=== PATIENT | female | born 1975 | race Caucasian/White ===

== ENCOUNTER 2016-12-09 22:10 | Emergency (ER) | payer OTHER ==
[~2016-12-09] VITALS: Ht 165.1 cm; Wt 88.5 kg
[~2016-12-09 22:10] MED LIST: ADDERALL 30 MG30 MG PO; ADDERALL30 MG PO; ALLEGRA60 M2 PO; ANAPROX DS550 MG PO; ANTIVERT25 MG PO; ATARAX25 MG PO; ATORVASTATIN TAB 20M; BACTRIM DS 8001 TA1 PO; CEFTIN500 M1 PO; CELEXA40 MG PO; CEPHALEXIN500 M1 PO; CHANTIX1 TAB PO; CIPRO250 MG PO; CORTISPORIN SUS10 ML OT; CYCLOBENZAPRINE10 MG PO; DAYPRO600 M1 PO; EFFEXOR XR150 M1 PO; EFFEXOR XR150 MG PO; EFFEXOR XR75 M1 PO; FLEXERIL10 MG PO; FLOMAX0.4 MG PO; HYCODAN,HYDROME10 ML PO; HYDR25T PO; HYDROCODONE BIT1 T11 PO; HYDROMET PO; IBU-8800 MG PO; INDERAL XL120 MG PO; INDERAL80 MG PO; KEFLEX500 MG PO; LEVOFLOXACIN; LEVOFLOXACIN500 MG PO; LISINOPRIL AND1 TAB PO; LORAZEPAM0.5 MG PO; MASON NATURAL2000 IU PO; MEDROL DOSEPAK4 MG PO; MILLIPRED5 MG PO; MOTRIN800 MG PO; Motrin,Rufen800 MG PO; NAPROSYN500 MG PO; NKHM; Nystatin Ointme30 GM PO; PERCOCET 325 MG1 TA2 PO; PERCOCET 325 MG1 TA5 PO; PERCOCET 325 MG1 TA7 PO; POTASSIUM CHLO20 ME3 PO; PRAVACHOL20 MG PO; PREDNISONE20 MG PO; ROBAXIN750 MG PO; SEPTRA DS 800 M1 TAB PO; TOPAMAX100 M1 PO; TOPAMAX100 MG PO; TRAMADOL HCL50 MG PO; ULTRAM50 MG PO; VENLAFAXINE; ZITHROMAX Z PA250 MG PO; ZOFRAN ODT4 MG SL; Zofran4 MG PO
[2016-12-10 03:14] VITALS: BP 103/66
== END 2016-12-10 04:22 | disposition home or self-care (01) ==
LOC: ED 22:10
DX: G43.909 Migraine, unspecified, not intractable, without status migrainosus (principal); F90.9 Attention-deficit hyperactivity disorder, unspecified type; F32.9 Major depressive disorder, single episode, unspecified; E78.5 Hyperlipidemia, unspecified; I10 Essential (primary) hypertension; F17.200 Nicotine dependence, unspecified, uncomplicated; Z88.1 Allergy status to other antibiotic agents; Z88.6 Allergy status to analgesic agent; Z88.8 Allergy status to other drugs, medicaments and biological substances; Z79.899 Other long term (current) drug therapy

== ENCOUNTER → 2017-03-15 | Outpatient (CLI) | payer OTHER | END | disposition home or self-care (01) | LOC: US 14:39 | DX: R10.31 Right lower quadrant pain (principal) ==

== ENCOUNTER → 2017-06-07 | Outpatient (CLI) | payer OTHER | END | disposition home or self-care (01) | LOC: RAD 08:51 | DX: M25.461 Effusion, right knee (principal) ==

== ENCOUNTER 2017-11-02 02:43 | Emergency (ER) | payer OTHER ==
[~2017-11-02] VITALS: Ht 167.6 cm; Wt 95.3 kg
--- NOTE | ~2017-11-02 | EKG ---
[place], [place] ELECTROCARDIOGRAM REPORT NAME: YAHAIRA CANTRELL V UNIT #: [id number] ROOM: DOCTOR: SEJAL MEZA MD BIRTHDATE: [birth year] DOS: 11/02/2017 EKG REPORT TIME: 03:00:44. FINDINGS: Sinus tachycardia at 103 beats per minute. IL interval 145 milliseconds, QRS duration 78 milliseconds, corrected QT interval 460 milliseconds, QRS axis 32. IMPRESSION: 1. Sinus tachycardia. 2. Left atrial enlargement. 3. Abnormal EKG. SEJAL MEZA MD CM:EKGRPT:ELECTROCARDIOGRAM REPORT [id number] SEJAL MEZA MD
[2017-11-02 03:07] LABS: BASO % 0.2 % (0.0-1.0); HEMATOCRIT 48.9 % (37.0-47.0); LYMPH % 30.9 % (27.0-41.0); MEAN CELL VOLUME 91.2 fl (81.0-99.0); MEAN CORPUSCULAR HGB 29.9 pg (27.0-31.0); MEAN CORPUSCULAR HGB CONC 32.7 g/dl (33.0-37.0); MEAN PLATELET VOLUME 10.4 fl (9.6-12.3); MONO # 0.8 10*3/uL (0.1-1.0); MONO % 5.2 % (3.0-9.0); NEUT # 10.1 10*3/uL (2.3-7.9); NEUT % 62.5 % (47.0-73.0); PLATELET COUNT AUTOMATED 273 10*3/uL (130-400); RED BLOOD COUNT 5.36 10*6/uL (4.10-5.10); RED CELL DISTRI WIDTH 12.9 % (0-14.5); WHITE BLOOD COUNT 16.2 10*3/uL (4.8-10.8)
[2017-11-02 03:23] LABS: ALBUMIN 3.6 gm/dl (3.1-4.5); ALKALINE PHOSPHATASE 95 U/L (45-117); BUN 22 mg/dl (7-24); CHLORIDE 103 mmol/L (98-107); CREATININE 1.41 mg/dL (0.55-1.02); POTASSIUM 3.8 mmol/L (3.5-5.1); SGOT/AST 14 IU/L (3-35); SGPT/ALT 22 U/L (12-78); SODIUM 138 mmol/L (136-145); TOTAL PROTEIN 7.4 gm/dL (6.4-8.2)
[2017-11-02 03:29] LABS: BETA-HCG, QUANT < 1.0 mIU/mL (1-3); TROPONIN I < 0.015 ng/ml (<0.045)
[2017-11-02 04:53] LABS: BILIRUBIN NEGATIVE (NEGATIVE); BLOOD NEGATIVE (NEGATIVE); CLARITY SL CLOUDY (CLEAR); COLOR YELLOW (YELLOW); GLUCOSE 1+ (NEGATIVE); KETONE NEGATIVE (NEGATIVE); LEUKO ESTERASE NEGATIVE (NEGATIVE); NITRITE NEGATIVE (NEGATIVE); PH 5.5 (5.0-9.0); SPECIFIC GRAVITY >= 1.030 (1.005-1.030); UROBILINOGEN 0.2 E.U./dl (0.2-1.0)
[2017-11-02 04:59] LABS: EPITHELIAL CELLS 35-40
[2017-11-02 05:00] LABS: BACTERIA TRACE; WBC 0-2 wbc/hpf (0-5)
[2017-11-02 05:01] LABS: URINE AMPHETAMINES < 1000 (1000ng/ml); URINE BARBITURATES < 200 (200ng/ml); URINE BENZODIAZEPINES < 200 (200ng/ml); URINE CANNABINOIDS (THC) < 50 (50ng/ml); URINE COCAINE > 300 (300ng/ml); URINE METHADONE < 300 (300ng/ml); URINE OPIATES < 300 (300ng/ml); URINE PHENCYCLIDINE < 25 (25ng/ml)
[2017-11-02 05:27] VITALS: BP 132/80
== END 2017-11-02 05:35 | disposition home or self-care (01) ==
LOC: ED 02:43
PROVIDERS: Student in an Organized Health Care Education/Training Program
DX: T50.904A Poisoning by unspecified drugs, medicaments and biological substances, undetermined, initial encounter (principal); E78.5 Hyperlipidemia, unspecified; I10 Essential (primary) hypertension; G43.909 Migraine, unspecified, not intractable, without status migrainosus; Z79.899 Other long term (current) drug therapy; Z88.6 Allergy status to analgesic agent; Z88.8 Allergy status to other drugs, medicaments and biological substances; Y92.89 Other specified places as the place of occurrence of the external cause

== ENCOUNTER 2017-11-27 11:02 | Emergency (ER) | payer OTHER ==
[2017-11-27 11:09] VITALS: BP 140/107
[2017-11-27 11:18] LABS: BASO % 0.3 % (0.0-1.0); HEMATOCRIT 46.6 % (37.0-47.0); HEMOGLOBIN 16.1 g/dl (12.0-16.0); LYMPH # 2.8 10*3/uL (1.3-4.4); LYMPH % 28.1 % (27.0-41.0); MEAN CELL VOLUME 86.3 fl (81.0-99.0); MEAN CORPUSCULAR HGB 29.8 pg (27.0-31.0); MEAN CORPUSCULAR HGB CONC 34.5 g/dl (33.0-37.0); MEAN PLATELET VOLUME 10.3 fl (9.6-12.3); MONO # 0.6 10*3/uL (0.1-1.0); MONO % 6.2 % (3.0-9.0); NEUT # 6.5 10*3/uL (2.3-7.9); NEUT % 65.2 % (47.0-73.0); PLATELET COUNT AUTOMATED 306 10*3/uL (130-400); RED CELL DISTRI WIDTH 12.9 % (0-14.5); WHITE BLOOD COUNT 9.9 10*3/uL (4.8-10.8)
[2017-11-27 11:36] LABS: ALBUMIN 3.9 gm/dl (3.1-4.5); ALKALINE PHOSPHATASE 97 U/L (45-117); BUN 14 mg/dl (7-24); CHLORIDE 102 mmol/L (98-107); CREATININE 1.07 mg/dL (0.55-1.02); POTASSIUM 3.2 mmol/L (3.5-5.1); SGOT/AST 14 IU/L (3-35); SGPT/ALT 21 U/L (12-78); SODIUM 138 mmol/L (136-145)
[2017-11-27 11:56] LABS: TROPONIN I < 0.015 ng/ml (<0.045)
[2017-11-27 12:22] LABS: URINE AMPHETAMINES > 1000 (1000ng/ml); URINE BARBITURATES < 200 (200ng/ml); URINE BENZODIAZEPINES < 200 (200ng/ml); URINE CANNABINOIDS (THC) < 50 (50ng/ml); URINE COCAINE > 300 (300ng/ml); URINE METHADONE < 300 (300ng/ml); URINE OPIATES < 300 (300ng/ml)
[2017-11-27 12:23] LABS: URINE PHENCYCLIDINE < 25 (25ng/ml)
== END 2017-11-27 12:34 | disposition home or self-care (01) ==
LOC: ED 11:02
PROVIDERS: Emergency Medicine
DX: S22.22XA Fracture of body of sternum, initial encounter for closed fracture (principal); F14.10 Cocaine abuse, uncomplicated; F90.9 Attention-deficit hyperactivity disorder, unspecified type; E78.5 Hyperlipidemia, unspecified; I10 Essential (primary) hypertension; G43.909 Migraine, unspecified, not intractable, without status migrainosus; F17.200 Nicotine dependence, unspecified, uncomplicated; Z98.890 Other specified postprocedural states; Z90.49 Acquired absence of other specified parts of digestive tract; Z88.6 Allergy status to analgesic agent; Z88.3 Allergy status to other anti-infective agents; Z88.8 Allergy status to other drugs, medicaments and biological substances; Z79.899 Other long term (current) drug therapy; X58.XXXA Exposure to other specified factors, initial encounter; Y93.89 Activity, other specified; Y92.89 Other specified places as the place of occurrence of the external cause; Y99.9 Unspecified external cause status

== ENCOUNTER → 2018-06-12 | Outpatient (CLI) | payer OTHER ==
[~2018-06-12] MED LIST changes: +CEFUROXIME AXE250 MG PO; +PREDNISONE20 M1 PO
== END ==
LOC: US 12:08
DX: N91.2 Amenorrhea, unspecified (principal)

== ENCOUNTER 2018-07-22 17:19 | Emergency (ER) | payer OTHER ==
[~2018-07-22] VITALS: Ht 165.1 cm; Wt 90.7 kg
[2018-07-22 18:05] VITALS: BP 129/63
[2019-01-24] MEDS ORDERED: ONE DAILY WOME1 EACH PO (18:32)
[2019-01-26] MEDS ORDERED: LIPITOR40 MG PO (12:30)
[2019-01-26] MEDS ORDERED: VITAMIN D-32000 UNI1 PO (12:30)
[2019-01-26] MEDS ORDERED: Motrin,Rufen800 MG PO (12:30)
[2019-01-26] MEDS ORDERED: ASPIRIN81 M1 PO (12:30)
== END 2018-07-22 18:05 | disposition home or self-care (01) ==
LOC: ED 17:19
DX: G43.909 Migraine, unspecified, not intractable, without status migrainosus (principal); I10 Essential (primary) hypertension; E78.5 Hyperlipidemia, unspecified; Z88.6 Allergy status to analgesic agent; Z88.8 Allergy status to other drugs, medicaments and biological substances; Z79.899 Other long term (current) drug therapy

== ENCOUNTER 2018-07-24 12:28 | Emergency (ER) | payer SELFPAY ==
[~2018-07-24] VITALS: Ht 165.1 cm; Wt 90.7 kg
[2018-07-24 12:31] VITALS: BP 127/85
== END 2018-07-24 14:59 | disposition home or self-care (01) ==
LOC: ED 12:28
DX: G43.909 Migraine, unspecified, not intractable, without status migrainosus (principal); H92.01 Otalgia, right ear; F17.200 Nicotine dependence, unspecified, uncomplicated; Z88.6 Allergy status to analgesic agent; Z88.8 Allergy status to other drugs, medicaments and biological substances; Z79.899 Other long term (current) drug therapy

== ENCOUNTER → 2019-02-09 | Outpatient (CLI) | payer OTHER ==
[~2019-02-09] MED LIST changes: +ASPIRIN81 M1 PO; +LIPITOR40 MG PO; +ONE DAILY WOME1 EACH PO; +VITAMIN D-32000 UNI1 PO
== END | disposition home or self-care (01) ==
LOC: RESCLI 02:02
DX: G43.009 Migraine without aura, not intractable, without status migrainosus (principal); R42 Dizziness and giddiness; G44.229 Chronic tension-type headache, not intractable; G62.9 Polyneuropathy, unspecified; E78.2 Mixed hyperlipidemia; R41.0 Disorientation, unspecified; E55.9 Vitamin D deficiency, unspecified; E53.8 Deficiency of other specified B group vitamins; F90.9 Attention-deficit hyperactivity disorder, unspecified type; Z72.0 Tobacco use; Z79.899 Other long term (current) drug therapy

== ENCOUNTER 2019-12-10 21:46 | Emergency (ER) | payer OTHER ==
[~2019-12-10] VITALS: Ht 162.5 cm; Wt 90.7 kg
[2019-12-10 21:55] VITALS: BP 162/107
[2019-12-10] MEDS ORDERED: ULTRAM50 MG PO (23:59)
== END 2019-12-11 00:12 | disposition home or self-care (01) ==
LOC: ED 21:46
DX: S22.31XA Fracture of one rib, right side, initial encounter for closed fracture (principal); E78.5 Hyperlipidemia, unspecified; I10 Essential (primary) hypertension; G43.909 Migraine, unspecified, not intractable, without status migrainosus; F17.200 Nicotine dependence, unspecified, uncomplicated; Z88.6 Allergy status to analgesic agent; Z88.8 Allergy status to other drugs, medicaments and biological substances; Z79.899 Other long term (current) drug therapy; Z86.718 Personal history of other venous thrombosis and embolism; Y08.89XA Assault by other specified means, initial encounter; Y93.89 Activity, other specified; Y92.89 Other specified places as the place of occurrence of the external cause; Y99.8 Other external cause status

== ENCOUNTER 2020-02-11 02:47 | Emergency (ER) | payer OTHER ==
[~2020-02-11] VITALS: Ht 162.5 cm; Wt 81.6 kg
[2020-02-11 02:54] VITALS: BP 123/85
[2020-02-11] MEDS ORDERED: AMOXICILLIN500 M3 PO (03:17)
== END 2020-02-11 03:28 | disposition home or self-care (01) ==
LOC: ED 02:47
DX: A69.20 Lyme disease, unspecified (principal); F17.200 Nicotine dependence, unspecified, uncomplicated; Z88.6 Allergy status to analgesic agent; Z88.8 Allergy status to other drugs, medicaments and biological substances; Z79.899 Other long term (current) drug therapy

== ENCOUNTER 2020-03-31 11:35 | Emergency (ER) | payer OTHER ==
[~2020-03-31] VITALS: Wt 81.6 kg
[~2020-03-31 11:35] MED LIST changes: +AMOXICILLIN500 M3 PO
[2020-03-31 11:44] VITALS: BP 134/93
[2020-03-31 12:50] LABS: BASO % 0.2 % (0.0-1.0); EOS # 0.3 10*3/uL (0.0-0.4); EOS % 2.5 % (1.0-4.0); HEMATOCRIT 46.3 % (37.0-47.0); LYMPH # 1.7 10*3/uL (1.3-4.4); LYMPH % 13.8 % (27.0-41.0); MEAN CORPUSCULAR HGB 29.7 pg (27.0-31.0); MEAN CORPUSCULAR HGB CONC 32.6 g/dl (33.0-37.0); MEAN PLATELET VOLUME 10.3 fl (9.6-12.3); MONO # 0.7 10*3/uL (0.1-1.0); MONO % 5.5 % (3.0-9.0); NEUT # 9.4 10*3/uL (2.3-7.9); NEUT % 77.7 % (47.0-73.0); PLATELET COUNT AUTOMATED 290 10*3/uL (130-400); RED BLOOD COUNT 5.09 10*6/uL (4.10-5.10); RED CELL DISTRI WIDTH 12.7 % (0-14.5); WHITE BLOOD COUNT 12.1 10*3/uL (4.8-10.8)
[2020-03-31 13:08] LABS: ALBUMIN 3.6 gm/dl (3.1-4.5); ALKALINE PHOSPHATASE 101 U/L (45-117); BUN 15 mg/dl (7-24); CHLORIDE 106 mmol/L (98-107); CREATININE 0.89 mg/dL (0.55-1.02); POTASSIUM 3.7 mmol/L (3.5-5.1); SGOT/AST 10 IU/L (3-35); SGPT/ALT 19 U/L (12-78); SODIUM 140 mmol/L (136-145); TOTAL PROTEIN 7.7 gm/dL (6.4-8.2)
[2020-03-31 13:32] LABS: BACTERIA 4+; BILIRUBIN NEGATIVE; BLOOD 3+ (NEGATIVE); CLARITY TURBID (CLEAR); COLOR YELLOW (YELLOW); GLUCOSE NEGATIVE; KETONE NEGATIVE; LEUKO ESTERASE 3+ (NEGATIVE); NITRITE POSITIVE (NEGATIVE); PH 6.5 (4.5-8.0); RBC TNTC rbc/hpf (0-2); WBC TNTC wbc/hpf (0-5)
[2020-03-31] MEDS ORDERED: PYRIDIUM200 M1 PO (13:44)
[2020-03-31] MEDS ORDERED: SEPTDS PO (13:44)
== END 2020-03-31 15:17 | disposition home or self-care (01) ==
LOC: ED 11:35
PROVIDERS: Physician Assistant
DX: N39.0 Urinary tract infection, site not specified (principal); Z79.899 Other long term (current) drug therapy; Z88.8 Allergy status to other drugs, medicaments and biological substances

== ENCOUNTER 2020-08-14 15:05 | Emergency (ER) | payer OTHER ==
[~2020-08-14] VITALS: Ht 162.5 cm; Wt 757.5 kg
[~2020-08-14 15:05] MED LIST changes: +CIPRO500 MG PO; +PYRIDIUM200 M1 PO; +SEPTDS PO
[2020-08-14 15:27] VITALS: BP 158/98
[2020-08-14] MEDS ORDERED: OMNICEF300 MG PO (17:33)
== END 2020-08-14 17:45 | disposition home or self-care (01) ==
LOC: ED 15:05
DX: G43.909 Migraine, unspecified, not intractable, without status migrainosus (principal); H66.91 Otitis media, unspecified, right ear; F17.200 Nicotine dependence, unspecified, uncomplicated; Z90.49 Acquired absence of other specified parts of digestive tract; Z98.890 Other specified postprocedural states; Z79.899 Other long term (current) drug therapy; Z79.82 Long term (current) use of aspirin; Z88.6 Allergy status to analgesic agent; Z88.3 Allergy status to other anti-infective agents; Z88.8 Allergy status to other drugs, medicaments and biological substances

== ENCOUNTER 2020-08-27 17:24 | Emergency (ER) | payer OTHER ==
[~2020-08-27] VITALS: Ht 165.1 cm; Wt 86.2 kg
[~2020-08-27 17:24] MED LIST changes: +OMNICEF300 MG PO
[2020-08-27 17:33] VITALS: BP 162/91
[2020-08-27] MEDS ORDERED: ROBAXIN-750750 MG PO (19:19)
== END 2020-08-27 19:39 | disposition home or self-care (01) ==
LOC: ED 17:24
DX: S16.1XXA Strain of muscle, fascia and tendon at neck level, initial encounter (principal); S00.93XA Contusion of unspecified part of head, initial encounter; I10 Essential (primary) hypertension; F32.9 Major depressive disorder, single episode, unspecified; F17.200 Nicotine dependence, unspecified, uncomplicated; Z79.899 Other long term (current) drug therapy; Z90.49 Acquired absence of other specified parts of digestive tract; X94.0XXA Assault by shotgun, initial encounter; Y93.89 Activity, other specified; Y92.89 Other specified places as the place of occurrence of the external cause; Y99.8 Other external cause status

== ENCOUNTER 2020-09-16 09:11 | Emergency (ER) | payer OTHER ==
[~2020-09-16] VITALS: Ht 165.1 cm; Wt 85.7 kg
[~2020-09-16 09:11] MED LIST changes: +ROBAXIN-750750 MG PO
[2020-09-16 09:16] VITALS: BP 143/99
[2020-09-16 09:54] LABS: BASO % 0.2 % (0.0-1.0); HEMATOCRIT 50.1 % (37.0-47.0); LYMPH # 1.9 10*3/uL (1.3-4.4); LYMPH % 15.6 % (27.0-41.0); MEAN CELL VOLUME 87.1 fl (81.0-99.0); MEAN CORPUSCULAR HGB 29.6 pg (27.0-31.0); MEAN CORPUSCULAR HGB CONC 33.9 g/dl (33.0-37.0); MEAN PLATELET VOLUME 10.8 fl (9.6-12.3); MONO # 0.7 10*3/uL (0.1-1.0); NEUT # 9.4 10*3/uL (2.3-7.9); NEUT % 77.9 % (47.0-73.0); PLATELET COUNT AUTOMATED 292 10*3/uL (130-400); RED BLOOD COUNT 5.75 10*6/uL (4.10-5.10); RED CELL DISTRI WIDTH 12.6 % (0-14.5); WHITE BLOOD COUNT 12.1 10*3/uL (4.8-10.8)
[2020-09-16 10:08] LABS: ALBUMIN 3.6 gm/dl (3.1-4.5); ALKALINE PHOSPHATASE 115 U/L (45-117); BUN 17 mg/dl (7-24); CHLORIDE 107 mmol/L (98-107); CREATININE 0.88 mg/dL (0.55-1.02); LIPASE 58 U/L (73-393); POTASSIUM 3.5 mmol/L (3.5-5.1); SGOT/AST 10 IU/L (3-35); SGPT/ALT 25 U/L (12-78); SODIUM 140 mmol/L (136-145); TOTAL PROTEIN 8.1 gm/dL (6.4-8.2)
[2020-09-16 13:04] LABS: BILIRUBIN Negative (Negative); BLOOD Trace-Intact (Negative); CLARITY Clear (Clear); COLOR Yellow (Yellow); GLUCOSE Negative (Negative); KETONE Negative (Negative); LEUKO ESTERASE Negative (Negative); NITRITE Negative (Negative); PH 6.5 (4.5-8.0); SPECIFIC GRAVITY >= 1.030 (1.001-1.030)
[2020-09-16 13:22] LABS: CALCIUM OXALATE CRYSTALS Trace; WBC 0-2 wbc/hpf (0-5)
== END 2020-09-16 13:49 | disposition home or self-care (01) ==
LOC: ED 09:11
PROVIDERS: Physician Assistant
DX: K29.70 Gastritis, unspecified, without bleeding (principal); I10 Essential (primary) hypertension; G43.909 Migraine, unspecified, not intractable, without status migrainosus; F32.9 Major depressive disorder, single episode, unspecified; F17.200 Nicotine dependence, unspecified, uncomplicated; Z88.8 Allergy status to other drugs, medicaments and biological substances; Z91.018 Allergy to other foods; Z79.899 Other long term (current) drug therapy; Z98.890 Other specified postprocedural states; Z90.49 Acquired absence of other specified parts of digestive tract

== ENCOUNTER 2020-09-21 11:10 | Emergency (ER) | payer OTHER ==
[~2020-09-21] VITALS: Wt 81.6 kg
[2020-09-21 12:30] VITALS: BP 156/103
== END 2020-09-21 13:35 | disposition short-term general hospital (02) ==
LOC: ED 11:10
DX: S00.83XA Contusion of other part of head, initial encounter (principal); M54.2 Cervicalgia; R07.81 Pleurodynia; R10.9 Unspecified abdominal pain; E66.9 Obesity, unspecified; F90.9 Attention-deficit hyperactivity disorder, unspecified type; E78.1 Pure hyperglyceridemia; G43.909 Migraine, unspecified, not intractable, without status migrainosus; G62.9 Polyneuropathy, unspecified; F17.200 Nicotine dependence, unspecified, uncomplicated; Z88.6 Allergy status to analgesic agent; Z88.8 Allergy status to other drugs, medicaments and biological substances; Z79.2 Long term (current) use of antibiotics; Z79.82 Long term (current) use of aspirin; Z79.899 Other long term (current) drug therapy; Z86.73 Personal history of transient ischemic attack (TIA), and cerebral infarction without residual deficits; Z90.49 Acquired absence of other specified parts of digestive tract; Y04.2XXA Assault by strike against or bumped into by another person, initial encounter; Y93.89 Activity, other specified; Y92.098 Other place in other non-institutional residence as the place of occurrence of the external cause; Y99.8 Other external cause status

== ENCOUNTER 2020-10-03 03:54 | Emergency (ER) | payer OTHER ==
[~2020-10-03] VITALS: Ht 162.5 cm; Wt 81.6 kg
[2020-10-03 04:02] VITALS: BP 147/86
[2020-10-03 05:23] LABS: BILIRUBIN Negative (Negative); BLOOD Negative (Negative); CLARITY Cloudy (Clear); COLOR Yellow (Yellow); GLUCOSE Negative (Negative); KETONE Negative (Negative); LEUKO ESTERASE Trace (Negative); NITRITE Negative (Negative); SPECIFIC GRAVITY >= 1.030 (1.001-1.030); UROBILINOGEN 0.2 E.U./dl (0.0-1.0)
[2020-10-03 05:36] LABS: CALCIUM OXALATE CRYSTALS 2+
[2020-10-03 05:37] LABS: URINE BARBITURATES < 200 (200ng/ml); URINE BENZODIAZEPINES < 200 (200ng/ml); URINE CANNABINOIDS (THC) < 50 (50ng/ml); URINE COCAINE < 300 (300ng/ml); URINE METHADONE < 300 (300ng/ml); URINE OPIATES < 300 (300ng/ml)
[2020-10-03 05:38] LABS: URINE PHENCYCLIDINE < 25 (25ng/ml)
[2020-10-03 05:41] LABS: URINE AMPHETAMINES > 1000 (1000ng/ml)
[2020-10-03] MEDS ORDERED: ULTRAM50 MG PO (06:04)
== END 2020-10-03 06:25 | disposition home or self-care (01) ==
LOC: ED 03:54
PROVIDERS: Emergency Medicine
DX: S22.32XA Fracture of one rib, left side, initial encounter for closed fracture (principal); F32.9 Major depressive disorder, single episode, unspecified; I10 Essential (primary) hypertension; Z88.8 Allergy status to other drugs, medicaments and biological substances; Z88.2 Allergy status to sulfonamides; Z79.899 Other long term (current) drug therapy; G43.909 Migraine, unspecified, not intractable, without status migrainosus; Z98.890 Other specified postprocedural states; Z90.49 Acquired absence of other specified parts of digestive tract; X58.XXXA Exposure to other specified factors, initial encounter; Y93.89 Activity, other specified; Y92.89 Other specified places as the place of occurrence of the external cause; Y99.8 Other external cause status

== ENCOUNTER 2020-12-20 04:43 | Emergency (ER) | payer OTHER ==
[~2020-12-20] VITALS: Ht 162.5 cm; Wt 81.6 kg
[2020-12-20 04:52] VITALS: BP 158/105
[2020-12-20 05:57] LABS: ALBUMIN 4.1 gm/dl (3.1-4.5); ALKALINE PHOSPHATASE 155 U/L (45-117); BUN 16 mg/dl (7-24); CHLORIDE 107 mmol/L (98-107); CREATININE 0.74 mg/dL (0.55-1.02); POTASSIUM 3.4 mmol/L (3.5-5.1); SGOT/AST 8 IU/L (3-35); SGPT/ALT 17 U/L (12-78); SODIUM 139 mmol/L (136-145); TOTAL PROTEIN 8.3 gm/dL (6.4-8.2)
[2020-12-20 06:06] LABS: BASO % 0.3 % (0.0-1.0); EOS # 0.2 10*3/uL (0.0-0.4); EOS % 2.8 % (1.0-4.0); HEMATOCRIT 46.9 % (37.0-47.0); LYMPH % 25.8 % (27.0-41.0); MEAN CELL VOLUME 88.3 fl (81.0-99.0); MEAN CORPUSCULAR HGB 27.9 pg (27.0-31.0); MEAN CORPUSCULAR HGB CONC 31.6 g/dl (33.0-37.0); MONO # 0.5 10*3/uL (0.1-1.0); MONO % 6.8 % (3.0-9.0); NEUT # 4.9 10*3/uL (2.3-7.9); PLATELET COUNT AUTOMATED 298 10*3/uL (130-400); RED BLOOD COUNT 5.31 10*6/uL (4.10-5.10); RED CELL DISTRI WIDTH 13.3 % (0-14.5); WHITE BLOOD COUNT 7.6 10*3/uL (4.8-10.8)
== END 2020-12-20 08:20 | disposition left against medical advice (07) ==
LOC: ED 04:43
PROVIDERS: Internal Medicine
DX: Z88.6 Allergy status to analgesic agent (principal); Z88.8 Allergy status to other drugs, medicaments and biological substances; Z88.1 Allergy status to other antibiotic agents; Z88.5 Allergy status to narcotic agent; Z79.2 Long term (current) use of antibiotics; Z79.82 Long term (current) use of aspirin; Z79.899 Other long term (current) drug therapy; Z90.49 Acquired absence of other specified parts of digestive tract; F17.200 Nicotine dependence, unspecified, uncomplicated

== ENCOUNTER 2020-12-20 09:43 | Emergency (ER) | payer OTHER ==
[~2020-12-20] VITALS: Wt 81.6 kg
[2020-12-20 09:49] VITALS: BP 139/95
== END 2020-12-20 10:39 | disposition left against medical advice (07) ==
LOC: ED 09:43
DX: L97.219 Non-pressure chronic ulcer of right calf with unspecified severity (principal); F17.200 Nicotine dependence, unspecified, uncomplicated; Z53.29 Procedure and treatment not carried out because of patient's decision for other reasons; Z88.6 Allergy status to analgesic agent; Z88.8 Allergy status to other drugs, medicaments and biological substances; Z88.5 Allergy status to narcotic agent; Z88.1 Allergy status to other antibiotic agents; Z79.2 Long term (current) use of antibiotics; Z79.82 Long term (current) use of aspirin; Z79.899 Other long term (current) drug therapy; Z90.49 Acquired absence of other specified parts of digestive tract

== ENCOUNTER 2021-01-01 14:12 | Emergency (ER) | payer OTHER ==
[~2021-01-01] VITALS: Wt 72.6 kg
[2021-01-01 14:20] VITALS: BP 151/79
== END 2021-01-01 15:50 | disposition left against medical advice (07) ==
LOC: ED 14:12
DX: L08.89 Other specified local infections of the skin and subcutaneous tissue (principal); Z53.21 Procedure and treatment not carried out due to patient leaving prior to being seen by health care provider

== ENCOUNTER 2021-01-22 20:57 | Emergency (ER) | payer OTHER ==
[~2021-01-22] VITALS: Ht 165.1 cm; Wt 71.7 kg
[2021-01-22 21:26] VITALS: BP 133/89
[2021-01-22] MEDS ORDERED: NAPROXEN250 MG PO (22:58)
== END 2021-01-22 23:21 | disposition home or self-care (01) ==
LOC: ED 20:57
DX: S16.1XXA Strain of muscle, fascia and tendon at neck level, initial encounter (principal); R07.89 Other chest pain; F17.200 Nicotine dependence, unspecified, uncomplicated; Z90.49 Acquired absence of other specified parts of digestive tract; Z79.899 Other long term (current) drug therapy; Z79.82 Long term (current) use of aspirin; Z88.6 Allergy status to analgesic agent; Z88.3 Allergy status to other anti-infective agents; X50.1XXA Overexertion from prolonged static or awkward postures, initial encounter; Y93.89 Activity, other specified; Y92.89 Other specified places as the place of occurrence of the external cause; Y99.9 Unspecified external cause status

== ENCOUNTER 2021-02-16 04:31 | Emergency (ER) | payer OTHER ==
[~2021-02-16] VITALS: Ht 162.5 cm; Wt 77.1 kg
[~2021-02-16 04:31] MED LIST changes: +NAPROXEN250 MG PO
[2021-02-16 04:47] VITALS: BP 149/91
[2021-02-16] MEDS ORDERED: SEPTDS PO (05:27)
== END 2021-02-16 05:50 | disposition home or self-care (01) ==
LOC: ED 04:31
DX: S20.224A Contusion of middle back wall of thorax, initial encounter (principal); L73.2 Hidradenitis suppurativa; F17.200 Nicotine dependence, unspecified, uncomplicated; Z88.6 Allergy status to analgesic agent; Z88.8 Allergy status to other drugs, medicaments and biological substances; Z88.5 Allergy status to narcotic agent; Z88.1 Allergy status to other antibiotic agents; Z79.2 Long term (current) use of antibiotics; Z79.899 Other long term (current) drug therapy; Z79.82 Long term (current) use of aspirin; Z90.49 Acquired absence of other specified parts of digestive tract; Z87.442 Personal history of urinary calculi; Y04.2XXA Assault by strike against or bumped into by another person, initial encounter; Y93.89 Activity, other specified; Y92.098 Other place in other non-institutional residence as the place of occurrence of the external cause; Y99.8 Other external cause status

== ENCOUNTER 2021-04-03 14:12 | Emergency (ER) | payer OTHER ==
[~2021-04-03] VITALS: Ht 162.5 cm; Wt 70.3 kg
[2021-04-03 14:30] VITALS: BP 133/89
== END 2021-04-03 21:24 | disposition left against medical advice (07) ==
LOC: ED 14:12
DX: L02.413 Cutaneous abscess of right upper limb (principal); Z53.21 Procedure and treatment not carried out due to patient leaving prior to being seen by health care provider

== ENCOUNTER 2021-04-05 04:45 | Emergency (ER) | payer OTHER ==
[~2021-04-05] VITALS: Ht 162.5 cm; Wt 72.6 kg
[2021-04-05 05:03] VITALS: BP 138/72
[2021-04-05 05:41] LABS: BILIRUBIN Negative (Negative); BLOOD 2+ (Negative); CLARITY Cloudy (Clear); COLOR Yellow (Yellow); GLUCOSE Negative (Negative); KETONE Negative (Negative); LEUKO ESTERASE 3+ (Negative); NITRITE Positive (Negative); PH 5.5 (4.5-8.0); UROBILINOGEN 0.2 E.U./dl (0.0-1.0)
[2021-04-05 06:38] LABS: WBC TNTC wbc/hpf (0-5)
[2021-04-05 06:39] LABS: EPITHELIAL CELLS 0-2; RBC 21-30 rbc/hpf (0-2)
[2021-04-05 06:40] LABS: BACTERIA 2+
[2021-04-05] MEDS ORDERED: CEPHALEXIN500 M1 PO ×2 (07:29→07:42)
[2021-04-05] MEDS ORDERED: SEPTDS PO (07:42)
== END 2021-04-05 07:36 | disposition home or self-care (01) ==
LOC: ED 04:45
PROVIDERS: Emergency Medicine
DX: L02.411 Cutaneous abscess of right axilla (principal); N39.0 Urinary tract infection, site not specified; F90.9 Attention-deficit hyperactivity disorder, unspecified type; F32.9 Major depressive disorder, single episode, unspecified; E78.1 Pure hyperglyceridemia; I10 Essential (primary) hypertension; G43.909 Migraine, unspecified, not intractable, without status migrainosus; G62.9 Polyneuropathy, unspecified; F17.200 Nicotine dependence, unspecified, uncomplicated; Z88.6 Allergy status to analgesic agent; Z88.8 Allergy status to other drugs, medicaments and biological substances; Z88.1 Allergy status to other antibiotic agents; Z79.2 Long term (current) use of antibiotics; Z79.899 Other long term (current) drug therapy; Z79.82 Long term (current) use of aspirin; Z86.73 Personal history of transient ischemic attack (TIA), and cerebral infarction without residual deficits

== ENCOUNTER 2021-04-21 18:11 | Emergency (ER) | payer OTHER ==
[~2021-04-21] VITALS: Wt 72.6 kg
[2021-04-21 18:22] VITALS: BP 153/98
[2021-04-21] MEDS ORDERED: CEPHALEXIN500 M1 PO (23:06)
== END 2021-04-22 00:32 | disposition home or self-care (01) ==
LOC: ED 18:11
DX: S80.11XA Contusion of right lower leg, initial encounter (principal); Z88.8 Allergy status to other drugs, medicaments and biological substances; Z88.6 Allergy status to analgesic agent; Z79.899 Other long term (current) drug therapy; X58.XXXA Exposure to other specified factors, initial encounter; Y93.89 Activity, other specified; Y92.89 Other specified places as the place of occurrence of the external cause; Y99.8 Other external cause status

== ENCOUNTER 2021-05-16 07:05 | Emergency (ER) | payer OTHER ==
[~2021-05-16] VITALS: Ht 162.5 cm; Wt 77.1 kg
[2021-05-16 07:15] VITALS: BP 137/88
[2021-05-16 08:10] LABS: BASO % 0.2 % (0.0-1.0); HEMATOCRIT 46.5 % (37.0-47.0); LYMPH # 1.4 10*3/uL (1.3-4.4); LYMPH % 11.8 % (27.0-41.0); MEAN CELL VOLUME 90.1 fl (81.0-99.0); MEAN CORPUSCULAR HGB 29.5 pg (27.0-31.0); MEAN CORPUSCULAR HGB CONC 32.7 g/dl (33.0-37.0); MONO # 0.8 10*3/uL (0.1-1.0); MONO % 7.2 % (3.0-9.0); NEUT # 9.3 10*3/uL (2.3-7.9); NEUT % 80.5 % (47.0-73.0); PLATELET COUNT AUTOMATED 276 10*3/uL (130-400); RED BLOOD COUNT 5.16 10*6/uL (4.10-5.10); RED CELL DISTRI WIDTH 13.3 % (0-14.5); WHITE BLOOD COUNT 11.5 10*3/uL (4.8-10.8)
[2021-05-16 08:27] LABS: ALBUMIN 3.3 gm/dl (3.1-4.5); ALKALINE PHOSPHATASE 121 U/L (45-117); BUN 15 mg/dl (7-24); CHLORIDE 101 mmol/L (98-107); CREATININE 0.91 mg/dL (0.55-1.02); POTASSIUM 3.8 mmol/L (3.5-5.1); SGOT/AST 25 IU/L (3-35); SGPT/ALT 32 U/L (12-78); SODIUM 133 mmol/L (136-145); TOTAL PROTEIN 8.3 gm/dL (6.4-8.2)
[2021-05-16 08:31] LABS: TROPONIN I < 0.015 ng/ml (<0.045)
[2021-05-16 09:12] LABS: BILIRUBIN Negative (Negative); BLOOD 3+ (Negative); CLARITY Turbid (Clear); COLOR Dark Yellow (Yellow); GLUCOSE Negative (Negative); KETONE 3+ (Negative); LEUKO ESTERASE 3+ (Negative); NITRITE Positive (Negative); PH 5.5 (4.5-8.0)
[2021-05-16 09:32] LABS: URINE AMPHETAMINES > 1000 (1000ng/ml); URINE BARBITURATES < 200 (200ng/ml); URINE BENZODIAZEPINES < 200 (200ng/ml); URINE CANNABINOIDS (THC) < 50 (50ng/ml); URINE COCAINE < 300 (300ng/ml); URINE METHADONE < 300 (300ng/ml); URINE OPIATES < 300 (300ng/ml)
[2021-05-16 09:35] LABS: RBC 31-40 rbc/hpf (0-2)
[2021-05-16 09:36] LABS: BACTERIA 3+; WBC TNTC wbc/hpf (0-5)
[2021-05-16 09:37] LABS: URINE PHENCYCLIDINE < 25 (25ng/ml)
[2021-05-16] MEDS ORDERED: SEPTDS PO (09:41)
== END 2021-05-16 10:05 | disposition home or self-care (01) ==
LOC: ED 07:05
PROVIDERS: Emergency Medicine
DX: G89.29 Other chronic pain (principal); N39.0 Urinary tract infection, site not specified; F15.10 Other stimulant abuse, uncomplicated

== ENCOUNTER → 2021-06-04 | Outpatient (CLI) | payer OTHER | LOC: WOUNDCARE 07:14 | PROVIDERS: ATTEND Nurse Practitioner Family | DX: T86.828 Other complications of skin graft (allograft) (autograft) (principal); M79.661 Pain in right lower leg; E78.5 Hyperlipidemia, unspecified; F17.200 Nicotine dependence, unspecified, uncomplicated; Z79.899 Other long term (current) drug therapy; Y83.2 Surgical operation with anastomosis, bypass or graft as the cause of abnormal reaction of the patient, or of later complication, without mention of misadventure at the time of the procedure; Y92.238 Other place in hospital as the place of occurrence of the external cause ==

== ENCOUNTER 2021-07-07 22:36 | Emergency (ER) | payer OTHER ==
[2021-07-07 22:48] VITALS: BP 148/100
[2021-07-07] MEDS ORDERED: CEPHALEXIN500 M1 PO (23:07)
== END 2021-07-07 23:54 | disposition home or self-care (01) ==
LOC: ED 22:36
DX: S00.81XA Abrasion of other part of head, initial encounter (principal); W22.8XXA Striking against or struck by other objects, initial encounter; Y93.89 Activity, other specified; Y92.89 Other specified places as the place of occurrence of the external cause; Y99.8 Other external cause status

== ENCOUNTER 2021-07-15 13:22 | Emergency (ER) | payer OTHER ==
[~2021-07-15] VITALS: Wt 72.6 kg
[2021-07-15 15:30] LABS: BASO % 0.2 % (0.0-1.0); HEMATOCRIT 47.9 % (37.0-47.0); LYMPH # 2.8 10*3/uL (1.3-4.4); LYMPH % 34.1 % (27.0-41.0); MEAN CELL VOLUME 89.7 fl (81.0-99.0); MEAN CORPUSCULAR HGB 29.4 pg (27.0-31.0); MEAN CORPUSCULAR HGB CONC 32.8 g/dl (33.0-37.0); MEAN PLATELET VOLUME 10.7 fl (9.6-12.3); MONO # 0.5 10*3/uL (0.1-1.0); MONO % 6.3 % (3.0-9.0); NEUT # 4.9 10*3/uL (2.3-7.9); NEUT % 59.3 % (47.0-73.0); PLATELET COUNT AUTOMATED 262 10*3/uL (130-400); RED BLOOD COUNT 5.34 10*6/uL (4.10-5.10); RED CELL DISTRI WIDTH 12.9 % (0-14.5); WHITE BLOOD COUNT 8.2 10*3/uL (4.8-10.8)
[2021-07-15 15:45] LABS: ACT PARTIAL THROMBO TIME 27.7 SECONDS (20.0-32.1)
[2021-07-15 15:53] LABS: ALBUMIN 3.5 gm/dl (3.1-4.5); ALKALINE PHOSPHATASE 126 U/L (45-117); BUN 16 mg/dl (7-24); CHLORIDE 112 mmol/L (98-107); CREATININE 0.77 mg/dL (0.55-1.02); LIPASE 109 U/L (73-393); POTASSIUM 3.7 mmol/L (3.5-5.1); SGOT/AST 12 IU/L (3-35); SGPT/ALT 19 U/L (12-78); SODIUM 141 mmol/L (136-145); TOTAL PROTEIN 7.6 gm/dL (6.4-8.2)
[2021-07-15 17:00] VITALS: BP 150/88
[2021-07-15 17:40] LABS: BILIRUBIN Negative (Negative); BLOOD 2+ (Negative); CLARITY Clear (Clear); COLOR Yellow (Yellow); GLUCOSE Negative (Negative); KETONE Negative (Negative); LEUKO ESTERASE 2+ (Negative); NITRITE Negative (Negative); PH 5.5 (4.5-8.0); UROBILINOGEN 0.2 E.U./dl (0.0-1.0)
[2021-07-15 18:02] LABS: BACTERIA 2+; EPITHELIAL CELLS TNTC; RBC TNTC rbc/hpf (0-2); WBC TNTC wbc/hpf (0-5)
[2021-07-15] MEDS ORDERED: SEPTDS PO (18:30)
== END 2021-07-15 18:07 | disposition left against medical advice (07) ==
LOC: ED 13:22
PROVIDERS: Physician Assistant
DX: R07.9 Chest pain, unspecified (principal); Z88.6 Allergy status to analgesic agent; Z88.8 Allergy status to other drugs, medicaments and biological substances

== ENCOUNTER 2021-08-07 17:19 | Emergency (ER) | payer OTHER ==
[~2021-08-07] VITALS: Ht 165.1 cm; Wt 72.6 kg
[2021-08-07 17:25] VITALS: BP 163/115
[2021-08-07 18:39] LABS: BILIRUBIN Negative (Negative); BLOOD 1+ (Negative); CLARITY Clear (Clear); COLOR Yellow (Yellow); GLUCOSE Negative (Negative); KETONE Negative (Negative); LEUKO ESTERASE 1+ (Negative); NITRITE Negative (Negative); SPECIFIC GRAVITY 1.015 (1.001-1.030); UROBILINOGEN 0.2 E.U./dl (0.0-1.0)
[2021-08-07 18:45] LABS: BACTERIA TRACE; CALCIUM OXALATE CRYSTALS Trace; EPITHELIAL CELLS 0-2; RBC 0-2 rbc/hpf (0-2); WBC 21-30 wbc/hpf (0-5)
[2021-08-07 18:47] LABS: URINE AMPHETAMINES > 1000 (1000ng/ml); URINE BARBITURATES < 200 (200ng/ml); URINE BENZODIAZEPINES < 200 (200ng/ml); URINE CANNABINOIDS (THC) < 50 (50ng/ml); URINE COCAINE < 300 (300ng/ml); URINE METHADONE < 300 (300ng/ml); URINE OPIATES < 300 (300ng/ml); URINE PHENCYCLIDINE < 25 (25ng/ml)
[2021-08-07 19:00] LABS: BASO % 0.2 % (0.0-1.0); EOS % 0.1 % (1.0-4.0); HEMATOCRIT 47.9 % (37.0-47.0); LYMPH # 2.1 10*3/uL (1.3-4.4); LYMPH % 23.7 % (27.0-41.0); MEAN CELL VOLUME 88.1 fl (81.0-99.0); MEAN CORPUSCULAR HGB 28.9 pg (27.0-31.0); MEAN CORPUSCULAR HGB CONC 32.8 g/dl (33.0-37.0); MEAN PLATELET VOLUME 10.4 fl (9.6-12.3); MONO # 0.4 10*3/uL (0.1-1.0); MONO % 4.9 % (3.0-9.0); NEUT # 6.2 10*3/uL (2.3-7.9); PLATELET COUNT AUTOMATED 254 10*3/uL (130-400); RED BLOOD COUNT 5.44 10*6/uL (4.10-5.10); RED CELL DISTRI WIDTH 12.6 % (0-14.5); WHITE BLOOD COUNT 8.7 10*3/uL (4.8-10.8)
[2021-08-07 19:16] LABS: ALBUMIN 3.4 gm/dl (3.1-4.5); ALKALINE PHOSPHATASE 138 U/L (45-117); BUN 13 mg/dl (7-24); CHLORIDE 106 mmol/L (98-107); CREATININE 0.83 mg/dL (0.55-1.02); POTASSIUM 4.2 mmol/L (3.5-5.1); SGOT/AST 19 IU/L (3-35); SGPT/ALT 29 U/L (12-78); SODIUM 141 mmol/L (136-145); TOTAL PROTEIN 7.4 gm/dL (6.4-8.2)
== END 2021-08-07 20:40 | disposition home or self-care (01) ==
LOC: ED 17:19
PROVIDERS: Student in an Organized Health Care Education/Training Program
DX: S61.211A Laceration without foreign body of left index finger without damage to nail, initial encounter (principal); S09.90XA Unspecified injury of head, initial encounter; F15.90 Other stimulant use, unspecified, uncomplicated; Z88.6 Allergy status to analgesic agent; Z88.8 Allergy status to other drugs, medicaments and biological substances; Z88.1 Allergy status to other antibiotic agents; Z90.49 Acquired absence of other specified parts of digestive tract; Z98.890 Other specified postprocedural states; Z87.891 Personal history of nicotine dependence; W18.39XA Other fall on same level, initial encounter; Y93.89 Activity, other specified; Y92.89 Other specified places as the place of occurrence of the external cause; Y99.8 Other external cause status

== ENCOUNTER 2021-09-17 14:14 | Emergency (ER) | payer OTHER ==
[~2021-09-17] VITALS: Wt 73.5 kg
[2021-09-17 14:19] VITALS: BP 133/94
== END 2021-09-17 16:26 | disposition left against medical advice (07) ==
LOC: ED 14:14
DX: M79.604 Pain in right leg (principal); F17.200 Nicotine dependence, unspecified, uncomplicated; Z88.1 Allergy status to other antibiotic agents; Z88.8 Allergy status to other drugs, medicaments and biological substances; Z90.49 Acquired absence of other specified parts of digestive tract; Z98.890 Other specified postprocedural states

== ENCOUNTER 2021-09-28 07:46 | Emergency (ER) | payer OTHER ==
[~2021-09-28] VITALS: Ht 162.5 cm; Wt 74.8 kg
[2021-09-28 07:59] VITALS: BP 129/89
[2021-09-28 08:44] LABS: BASO % 0.3 % (0.0-1.0); HEMATOCRIT 46.5 % (37.0-47.0); LYMPH # 1.5 10*3/uL (1.3-4.4); MEAN CELL VOLUME 88.7 fl (81.0-99.0); MEAN CORPUSCULAR HGB 28.8 pg (27.0-31.0); MEAN CORPUSCULAR HGB CONC 32.5 g/dl (33.0-37.0); MEAN PLATELET VOLUME 10.2 fl (9.6-12.3); MONO # 0.6 10*3/uL (0.1-1.0); MONO % 5.3 % (3.0-9.0); NEUT # 9.6 10*3/uL (2.3-7.9); NEUT % 81.1 % (47.0-73.0); PLATELET COUNT AUTOMATED 288 10*3/uL (130-400); RED BLOOD COUNT 5.24 10*6/uL (4.10-5.10); RED CELL DISTRI WIDTH 12.9 % (0-14.5); WHITE BLOOD COUNT 11.9 10*3/uL (4.8-10.8)
[2021-09-28 09:01] LABS: ALKALINE PHOSPHATASE 136 U/L (45-117); BUN 10 mg/dl (7-24); CHLORIDE 108 mmol/L (98-107); CREATININE 0.79 mg/dL (0.55-1.02); LIPASE 66 U/L (73-393); POTASSIUM 4.2 mmol/L (3.5-5.1); SGOT/AST 14 IU/L (3-35); SGPT/ALT 21 U/L (12-78); SODIUM 142 mmol/L (136-145); TOTAL PROTEIN 7.7 gm/dL (6.4-8.2)
[2021-09-28 09:27] LABS: BILIRUBIN Negative (Negative); BLOOD 3+ (Negative); CLARITY Turbid (Clear); COLOR Yellow (Yellow); GLUCOSE Negative (Negative); KETONE Negative (Negative); LEUKO ESTERASE 3+ (Negative); NITRITE Positive (Negative); PH 5.5 (4.5-8.0); UROBILINOGEN 0.2 E.U./dl (0.0-1.0)
[2021-09-28 10:05] LABS: WBC TNTC wbc/hpf (0-5)
[2021-09-28 10:06] LABS: BACTERIA 3+; RBC TNTC rbc/hpf (0-2)
[2021-09-28] MEDS ORDERED: PHENERGAN25 M3 PO (12:14)
[2021-09-28] MEDS ORDERED: HYDROCODONE-AC1 EAC1 PO (12:14)
[2021-09-28] MEDS ORDERED: Motrin,Rufen800 MG PO (12:14)
[2021-09-28] MEDS ORDERED: FLOMAX0.4 MG PO (12:14)
[2021-09-28] MEDS ORDERED: CIPRO500 MG PO (12:14)
== END 2021-09-28 12:42 | disposition home or self-care (01) ==
LOC: ED 07:46
PROVIDERS: Emergency Medicine
DX: N13.2 Hydronephrosis with renal and ureteral calculous obstruction (principal); N39.0 Urinary tract infection, site not specified; Z88.6 Allergy status to analgesic agent; Z88.8 Allergy status to other drugs, medicaments and biological substances; Z88.1 Allergy status to other antibiotic agents; Z90.49 Acquired absence of other specified parts of digestive tract; Z98.890 Other specified postprocedural states

== ENCOUNTER 2021-12-17 14:32 | Emergency (ER) | payer OTHER ==
[~2021-12-17] VITALS: Wt 77.1 kg
[~2021-12-17 14:32] MED LIST changes: +HYDROCODONE-AC1 EAC1 PO; +PHENERGAN25 M3 PO
[2021-12-17 15:14] LABS: BASO % 0.3 % (0.0-1.0); HEMATOCRIT 48.4 % (37.0-47.0); LYMPH # 2.5 10*3/uL (1.3-4.4); LYMPH % 24.5 % (27.0-41.0); MEAN CELL VOLUME 86.3 fl (81.0-99.0); MEAN CORPUSCULAR HGB 27.1 pg (27.0-31.0); MEAN CORPUSCULAR HGB CONC 31.4 g/dl (33.0-37.0); MEAN PLATELET VOLUME 10.1 fl (9.6-12.3); MONO # 0.5 10*3/uL (0.1-1.0); MONO % 4.6 % (3.0-9.0); NEUT # 7.2 10*3/uL (2.3-7.9); NEUT % 70.4 % (47.0-73.0); PLATELET COUNT AUTOMATED 401 10*3/uL (130-400); RED BLOOD COUNT 5.61 10*6/uL (4.10-5.10); RED CELL DISTRI WIDTH 13.2 % (0-14.5); WHITE BLOOD COUNT 10.3 10*3/uL (4.8-10.8)
[2021-12-17 15:22] VITALS: BP 136/98
[2021-12-17 15:31] LABS: ALKALINE PHOSPHATASE 117 U/L (45-117); BUN 20 mg/dl (7-24); CHLORIDE 106 mmol/L (98-107); CREATININE 1.04 mg/dL (0.55-1.02); POTASSIUM 3.8 mmol/L (3.5-5.1); SGOT/AST 12 IU/L (3-35); SGPT/ALT 18 U/L (12-78); SODIUM 141 mmol/L (136-145); TOTAL PROTEIN 8.8 gm/dL (6.4-8.2)
[2021-12-17 15:34] LABS: ACETAMINOPHEN (TYLENOL) < 5.0 ug/ml (10-30); ETHYL ALCOHOL < 3.0 mg/dl (<3)
[2021-12-17 15:47] LABS: BILIRUBIN Negative (Negative); BLOOD Negative (Negative); CLARITY Cloudy (Clear); COLOR Yellow (Yellow); GLUCOSE Negative (Negative); KETONE Negative (Negative); LEUKO ESTERASE 3+ (Negative); NITRITE Positive (Negative); PH 5.5 (4.5-8.0); SPECIFIC GRAVITY 1.015 (1.001-1.030); UROBILINOGEN 0.2 E.U./dl (0.0-1.0)
[2021-12-17 15:51] LABS: URINE AMPHETAMINES < 1000 (1000ng/ml); URINE BARBITURATES < 200 (200ng/ml); URINE BENZODIAZEPINES < 200 (200ng/ml); URINE CANNABINOIDS (THC) < 50 (50ng/ml); URINE COCAINE < 300 (300ng/ml); URINE METHADONE < 300 (300ng/ml); URINE OPIATES < 300 (300ng/ml)
[2021-12-17 15:56] LABS: URINE PHENCYCLIDINE < 25 (25ng/ml)
[2021-12-17 16:11] LABS: BACTERIA 2+; RBC 0-2 rbc/hpf (0-2); WBC TNTC wbc/hpf (0-5); YEAST TRACE
[2021-12-17] MEDS ORDERED: VISTARIL25 MG PO (17:16)
== END 2021-12-17 17:26 | disposition home or self-care (01) ==
LOC: ED 14:32
PROVIDERS: Internal Medicine
DX: F43.20 Adjustment disorder, unspecified (principal); Z20.822 Contact with and (suspected) exposure to COVID-19; Z88.8 Allergy status to other drugs, medicaments and biological substances; Z90.49 Acquired absence of other specified parts of digestive tract; Z98.890 Other specified postprocedural states; Z87.891 Personal history of nicotine dependence

== ENCOUNTER 2022-01-08 14:36 | Emergency (ER) | payer OTHER ==
[~2022-01-08] VITALS: Wt 76.7 kg
[~2022-01-08 14:36] MED LIST changes: +VISTARIL25 MG PO
[2022-01-08 14:42] VITALS: BP 147/102
[2022-01-08 15:05] LABS: BILIRUBIN Negative (Negative); BLOOD 1+ (Negative); CLARITY Turbid (Clear); COLOR Yellow (Yellow); GLUCOSE Negative (Negative); KETONE Trace (Negative); LEUKO ESTERASE 3+ (Negative); NITRITE Positive (Negative); PH 5.5 (4.5-8.0)
[2022-01-08 15:16] LABS: ALKALINE PHOSPHATASE 110 U/L (45-117); BUN 16 mg/dl (7-24); CHLORIDE 106 mmol/L (98-107); CREATININE 0.95 mg/dL (0.55-1.02); POTASSIUM 3.8 mmol/L (3.5-5.1); SGOT/AST 17 IU/L (3-35); SGPT/ALT 24 U/L (12-78); SODIUM 142 mmol/L (136-145); TOTAL PROTEIN 8.5 gm/dL (6.4-8.2)
[2022-01-08 15:21] LABS: BASO % 0.3 % (0.0-1.0); HEMATOCRIT 44.7 % (37.0-47.0); LYMPH # 2.1 10*3/uL (1.3-4.4); LYMPH % 20.8 % (27.0-41.0); MEAN CELL VOLUME 85.5 fl (81.0-99.0); MEAN CORPUSCULAR HGB CONC 31.5 g/dl (33.0-37.0); MEAN PLATELET VOLUME 10.1 fl (9.6-12.3); MONO # 0.4 10*3/uL (0.1-1.0); MONO % 3.7 % (3.0-9.0); NEUT # 7.6 10*3/uL (2.3-7.9); PLATELET COUNT AUTOMATED 408 10*3/uL (130-400); RED BLOOD COUNT 5.23 10*6/uL (4.10-5.10); RED CELL DISTRI WIDTH 14.6 % (0-14.5); WHITE BLOOD COUNT 10.1 10*3/uL (4.8-10.8)
[2022-01-08 15:25] LABS: BACTERIA 4+; WBC TNTC wbc/hpf (0-5)
[2022-01-08] MEDS ORDERED: TYLENOL EXTRA500 MG PO (15:47)
[2022-01-08] MEDS ORDERED: SEPTDS PO (15:47)
== END 2022-01-08 16:13 | disposition home or self-care (01) ==
LOC: ED 14:36
PROVIDERS: Internal Medicine
DX: N39.0 Urinary tract infection, site not specified (principal); Z88.8 Allergy status to other drugs, medicaments and biological substances; Z90.49 Acquired absence of other specified parts of digestive tract; Z98.890 Other specified postprocedural states

== ENCOUNTER 2022-03-05 09:57 | Emergency (ER) | payer OTHER ==
[~2022-03-05] VITALS: Ht 162.5 cm; Wt 75.7 kg
[~2022-03-05 09:57] MED LIST changes: +TYLENOL EXTRA500 MG PO
[2022-03-05 10:36] LABS: BASO % 0.3 % (0.0-1.0); HEMATOCRIT 42.9 % (37.0-47.0); LYMPH # 0.5 10*3/uL (1.3-4.4); LYMPH % 4.8 % (27.0-41.0); MEAN CELL VOLUME 83.6 fl (81.0-99.0); MEAN CORPUSCULAR HGB 27.1 pg (27.0-31.0); MEAN CORPUSCULAR HGB CONC 32.4 g/dl (33.0-37.0); MEAN PLATELET VOLUME 9.7 fl (9.6-12.3); MONO # 0.6 10*3/uL (0.1-1.0); MONO % 6.4 % (3.0-9.0); NEUT # 8.7 10*3/uL (2.3-7.9); NEUT % 88.1 % (47.0-73.0); PLATELET COUNT AUTOMATED 273 10*3/uL (130-400); RED BLOOD COUNT 5.13 10*6/uL (4.10-5.10); RED CELL DISTRI WIDTH 15.5 % (0-14.5); WHITE BLOOD COUNT 9.9 10*3/uL (4.8-10.8)
[2022-03-05 10:53] LABS: ALKALINE PHOSPHATASE 100 U/L (45-117); BUN 14 mg/dl (7-24); CHLORIDE 104 mmol/L (98-107); CREATININE 1.07 mg/dL (0.55-1.02); POTASSIUM 3.6 mmol/L (3.5-5.1); SGOT/AST 13 IU/L (3-35); SGPT/ALT 23 U/L (12-78); SODIUM 140 mmol/L (136-145); TOTAL PROTEIN 7.8 gm/dL (6.4-8.2)
[2022-03-05 10:58] LABS: ETHYL ALCOHOL < 3.0 mg/dl (<3)
[2022-03-05 11:23] LABS: BILIRUBIN Negative (Negative); BLOOD Trace-Lysed (Negative); CLARITY Cloudy (Clear); COLOR Yellow (Yellow); GLUCOSE Negative (Negative); KETONE Negative (Negative); LEUKO ESTERASE 3+ (Negative); NITRITE Negative (Negative); UROBILINOGEN 0.2 E.U./dl (0.0-1.0)
[2022-03-05 11:33] LABS: URINE AMPHETAMINES < 1000 (1000ng/ml); URINE BARBITURATES < 200 (200ng/ml); URINE BENZODIAZEPINES < 200 (200ng/ml); URINE CANNABINOIDS (THC) < 50 (50ng/ml); URINE COCAINE < 300 (300ng/ml); URINE METHADONE < 300 (300ng/ml); URINE OPIATES < 300 (300ng/ml)
[2022-03-05 11:36] LABS: URINE PHENCYCLIDINE < 25 (25ng/ml)
[2022-03-05 11:39] LABS: WBC TNTC wbc/hpf (0-5)
[2022-03-05] MEDS ORDERED: CIPRO500 MG PO (12:03)
[2022-03-05 12:19] VITALS: BP 118/76
[2022-03-05] MEDS ORDERED: TYLENOL325 M1 PO (12:28)
[2022-03-05] MEDS ORDERED: SEPTDS PO (12:28)
[2022-03-05] MEDS ORDERED: NAPROXEN250 MG PO (12:28)
== END 2022-03-05 12:38 | disposition home or self-care (01) ==
LOC: ED 09:57
PROVIDERS: Emergency Medicine
DX: N39.0 Urinary tract infection, site not specified (principal); Z20.822 Contact with and (suspected) exposure to COVID-19; R07.89 Other chest pain; R07.81 Pleurodynia; F90.9 Attention-deficit hyperactivity disorder, unspecified type; F32.A Depression, unspecified; E78.1 Pure hyperglyceridemia; I10 Essential (primary) hypertension; G43.909 Migraine, unspecified, not intractable, without status migrainosus; G62.9 Polyneuropathy, unspecified; Z88.6 Allergy status to analgesic agent; Z88.8 Allergy status to other drugs, medicaments and biological substances; Z88.1 Allergy status to other antibiotic agents; Z79.899 Other long term (current) drug therapy; Z86.73 Personal history of transient ischemic attack (TIA), and cerebral infarction without residual deficits; Z90.49 Acquired absence of other specified parts of digestive tract

== ENCOUNTER → 2022-03-31 | Outpatient (CLI) | payer OTHER ==
[~2022-03-31] MED LIST changes: +TYLENOL325 M1 PO
[2022-03-31 09:32] LABS: BASO % 0.2 % (0.0-1.0); HEMATOCRIT 44.5 % (37.0-47.0); LYMPH # 2.3 10*3/uL (1.3-4.4); LYMPH % 25.7 % (27.0-41.0); MEAN CELL VOLUME 86.6 fl (81.0-99.0); MEAN CORPUSCULAR HGB 27.8 pg (27.0-31.0); MEAN CORPUSCULAR HGB CONC 32.1 g/dl (33.0-37.0); MEAN PLATELET VOLUME 10.4 fl (9.6-12.3); MONO # 0.6 10*3/uL (0.1-1.0); MONO % 6.6 % (3.0-9.0); NEUT % 67.4 % (47.0-73.0); PLATELET COUNT AUTOMATED 281 10*3/uL (130-400); RED BLOOD COUNT 5.14 10*6/uL (4.10-5.10); RED CELL DISTRI WIDTH 14.9 % (0-14.5)
[2022-03-31 09:50] LABS: BUN 19 mg/dl (7-24); CHLORIDE 107 mmol/L (98-107); CHOLESTEROL 223 mg/dL (<200); CREATININE 1.03 mg/dL (0.55-1.02); IRON 30 ug/dL (50-170); POTASSIUM 3.6 mmol/L (3.5-5.1); SGOT/AST 7 IU/L (3-35); SGPT/ALT 14 U/L (12-78); SODIUM 142 mmol/L (136-145); TOTAL PROTEIN 8.4 gm/dL (6.4-8.2); TRIGLYCERIDES 182 mg/dl (<150)
[2022-03-31 09:54] LABS: ALKALINE PHOSPHATASE 110 U/L (45-117); LDL CHOLESTEROL 148 mg/dL (9-159)
== END | disposition home or self-care (01) ==
LOC: LAB 09:00
PROVIDERS: ATTEND Family Medicine
DX: F43.10 Post-traumatic stress disorder, unspecified (principal); E78.1 Pure hyperglyceridemia; D64.9 Anemia, unspecified; R63.0 Anorexia

== ENCOUNTER → 2022-04-30 | Outpatient (CLI) | payer OTHER ==
[~2022-04-30] MED LIST changes: +MINIPRESS1 M1 PO; +NEURONTIN300 MG PO
[2022-04-30 15:25] LABS: BASO % 0.2 % (0.0-1.0); EOS % 0.4 % (1.0-4.0); HEMATOCRIT 43.1 % (37.0-47.0); LYMPH # 2.5 10*3/uL (1.3-4.4); LYMPH % 29.4 % (27.0-41.0); MEAN CELL VOLUME 90.2 fl (81.0-99.0); MEAN CORPUSCULAR HGB 28.5 pg (27.0-31.0); MEAN CORPUSCULAR HGB CONC 31.6 g/dl (33.0-37.0); MEAN PLATELET VOLUME 10.6 fl (9.6-12.3); MONO # 0.5 10*3/uL (0.1-1.0); MONO % 5.9 % (3.0-9.0); NEUT # 5.5 10*3/uL (2.3-7.9); NEUT % 63.9 % (47.0-73.0); PLATELET COUNT AUTOMATED 259 10*3/uL (130-400); RED BLOOD COUNT 4.78 10*6/uL (4.10-5.10); RED CELL DISTRI WIDTH 14.1 % (0-14.5); WHITE BLOOD COUNT 8.5 10*3/uL (4.8-10.8)
[2022-04-30 15:43] LABS: CHOLESTEROL 216 mg/dL (<200); LDL CHOLESTEROL 115 mg/dL (9-159); TRIGLYCERIDES 330 mg/dl (<150)
[2022-05-01 09:09] LABS: RHEUMATOID FACTOR 10.4 IU/mL (<14.0)
[2022-05-01 14:11] LABS: CREATININE,URINE 70.6 mg/dL (Not Estab.)
[2022-05-01 21:06] LABS: HEPATITIS C QNT HCV Not Detected IU/mL (.)
[2022-05-05 00:06] LABS: CCP ANTIBODIES IGG/IGA 4 units (0-19)
== END | disposition home or self-care (01) ==
LOC: LAB 14:54
DX: Z11.4 Encounter for screening for human immunodeficiency virus [HIV] (principal); Z11.59 Encounter for screening for other viral diseases; G89.21 Chronic pain due to trauma; I10 Essential (primary) hypertension

== ENCOUNTER → 2022-05-25 | Outpatient (CLI) | payer OTHER ==
[~2022-05-25] MED LIST changes: +ASPIRIN ADULT L81 M2 PO; +ATORVASTATIN CA80 M1 PO; +VITAMIN D3125 MC1 PO
[2022-05-25 16:42] LABS: CREATININE 1.17 mg/dL (0.55-1.02); POTASSIUM 3.9 mmol/L (3.5-5.1)
== END ==
LOC: LAB 15:26
PROVIDERS: ATTEND Internal Medicine Nephrology
DX: N17.9 Acute kidney failure, unspecified (principal)

== ENCOUNTER → 2023-01-04 | Outpatient (CLI) | payer OTHER ==
[2023-01-04 11:42] LABS: ALKALINE PHOSPHATASE 140 U/L (46-116); BUN 17 mg/dl (9-23); CHLORIDE 105 mmol/L (98-107); CHOLESTEROL 278 mg/dL (<200); POTASSIUM 3.8 mmol/L (3.4-5.1); SGPT/ALT 22 U/L (10-49)
[2023-01-04 11:47] LABS: TRIGLYCERIDES 611 mg/dl (<150)
== END ==
LOC: LAB 10:29
PROVIDERS: ATTEND Internal Medicine
DX: Z11.4 Encounter for screening for human immunodeficiency virus [HIV] (principal); Z11.59 Encounter for screening for other viral diseases; E66.09 Other obesity due to excess calories; Z68.34 Body mass index [BMI] 34.0-34.9, adult

== ENCOUNTER → 2023-06-08 | Outpatient (CLI) | payer OTHER ==
[2023-06-08 12:56] LABS: BASO % 0.2 % (0.0-1.0); EOS % 0.1 % (1.0-4.0); LYMPH # 2.1 10*3/uL (1.3-4.4); LYMPH % 18.2 % (27.0-41.0); MEAN CELL VOLUME 90.2 fl (81.0-99.0); MEAN CORPUSCULAR HGB 29.2 pg (27.0-31.0); MEAN CORPUSCULAR HGB CONC 32.3 g/dl (33.0-37.0); MEAN PLATELET VOLUME 9.5 fl (9.6-12.3); MONO # 0.4 10*3/uL (0.1-1.0); MONO % 3.1 % (3.0-9.0); NEUT # 9.1 10*3/uL (2.3-7.9); NEUT % 78.1 % (47.0-73.0); PLATELET COUNT AUTOMATED 377 10*3/uL (130-400); RED BLOOD COUNT 5.21 10*6/uL (4.10-5.10); WHITE BLOOD COUNT 11.7 10*3/uL (4.8-10.8)
[2023-06-08 13:31] LABS: POTASSIUM 3.3 mmol/L (3.4-5.1); TOTAL PROTEIN 7.6 gm/dL (6.0-8.0)
== END | disposition home or self-care (01) ==
LOC: LAB 12:29
PROVIDERS: ATTEND Internal Medicine
DX: Z13.220 Encounter for screening for lipoid disorders (principal); N18.9 Chronic kidney disease, unspecified; F17.200 Nicotine dependence, unspecified, uncomplicated; Z11.4 Encounter for screening for human immunodeficiency virus [HIV]